=== PATIENT | male | born 1960 | race Caucasian/White ===

== ENCOUNTER 2025-09-10 20:47 | Emergency (ER) | payer OTHER ==
[2025-09-10 20:52] VITALS: BP 120/75; PULSE 66; RESP 20; TEMP 98.1; BMI 44.4
[2025-09-10] MEDS ORDERED: predniSONE 20 MG TABLET (UD) ONE (22:08)
[2025-09-10] MEDS ORDERED: KETOROLAC TROMETHAMINE 60 MG/2 ML VIAL ONE (22:08)
[2025-09-10] MEDS: KETOROLAC TROMETHAMINE 60 MG/2 ML VIAL IM ONE (22:55)
[2025-09-10] MEDS: predniSONE 20 MG TABLET (UD) PO ONE (22:56)
[2025-09-10] MEDS ORDERED: LIDOCAINE 5% TOPICAL PATCH ONE (23:05)
== END 2025-09-11 00:01 | disposition home or self-care (01) ==
LOC: FER 20:47
PROC: 3E0233Z Introduction of Anti-inflammatory into Muscle, Percutaneous Approach (ICD-10-PCS; principal; 2025-09-10)
DX: M25.551 Pain in right hip (principal)
CPT/HCPCS: 72170-TC-FY; 73502-TC-RT-FY; 73700-TC-RT; 96372; 99285-25